=== PATIENT | male | born 1985 | race Caucasian/White ===

== ENCOUNTER 2018-03-02 06:50 | Emergency (ER) | payer BC, OTHER ==
[~2018-03-02] VITALS: Ht 175.3 cm; Wt 108.9 kg
[2018-03-02 06:57] VITALS: BP 143/77
--- NOTE | 2018-03-02 07:15 | NUR ---
32/ M BIB SELF, C/O OF PRODUCTIVE COUGH, BODY ACHES, AND CONGESTION X4 DAYS. PATIENT STATES HE HAS NAUSEA, DIARRHEA, POOR APPETITE, DENIES VOMITING OR ABDOMINAL DISCOMFORT OR PAIN. DENIES DYSURIA, REPORTS DARK URINE, STATES "I FEEL DEHYDRATED." BREATHING IS UNLABORED AND EQUAL BILATERAL, LUNG SOUNDS SLIGHTLY WHEEZING, PATIENT DENIES CP, OR SOB. CONSTANT BODY ACHE PAIN AND HEADACHES IS 6/10. PATIENT IS AOX4, STEADY GAIT, DENIES WEAKNESS OR DIZZINESS. PATIENT GOWNED, SAFETY PRECAUTIONS IN PLACE.
[2018-03-02] MEDS ORDERED: KETOROLAC 30 MG/ML VIAL IM ONE (07:20)
--- NOTE | 2018-03-02 07:50 | NUR ---
X RAY AT BEDSIDE.
--- NOTE | 2018-03-02 07:54 | NUR ---
INFLUENZA SWAB COLLECTED, LAB AT BEDSIDE TO PARTS COUNTER CLERK.
[2018-03-02] MEDS ORDERED: NACL 0.9% 1,000 ML IV ONE (08:15)
--- NOTE | 2018-03-02 08:29 | NUR ---
FLU B POSITIVE RESULT RECEIVED BY THE LAB AT THIS TIME. AWARE.
[2018-03-02] MEDS ORDERED: OSELTAMIVIR PHOSPHATE 75 MG CAP PO ONE (08:50)
[2018-03-02] MEDS ORDERED: LEVOFLOXACIN 750 MG TAB PO ONE (08:50)
[2018-03-02 10:28] VITALS: BP 122/71
--- NOTE | 2018-03-02 10:28 | NUR ---
Patient discharged with v/s stable. Written and verbal after care instructions given and explained. Patient alert, oriented and verbalized understanding of instructions. Ambulatory with steady gait. All questions addressed prior to discharge. ID band removed. Patient advised to follow up with PMD. Rx of TAMIFLU, IBUPROFEN, ZOFRAN, LEVAQUIN, AND CODEINE PHOSPHATE/ PROMETHAZINE HYDROCHLORIDE given. Patient educated on indication of medication including possible reaction and side effects. Opportunity to ask questions provided and answered.
== END 2018-03-02 10:28 | disposition home or self-care (01) ==
LOC: MED 06:50
DX: J11.1 Influenza due to unidentified influenza virus with other respiratory manifestations (principal)
CPT/HCPCS: 36415; 71045; 81002; 87804; 96360; 96372; 99284; J1885; J7030

== ENCOUNTER 2019-04-25 18:48 | Emergency (ER) | payer BC ==
[~2019-04-25] VITALS: Ht 177.8 cm; Wt 115.7 kg
[2019-04-25 18:51] VITALS: BP 155/94
--- NOTE | 2019-04-25 19:02 | NUR ---
Patient ambulated to bed 6. RN evaluating patient at bedside.
--- NOTE | 2019-04-25 19:02 | NUR ---
ambulated to bed 6
--- NOTE | 2019-04-25 19:04 | NUR ---
Dr. Houston is evaluating the patient at bedside.
--- NOTE | 2019-04-25 19:05 | NUR ---
RECEIVED REPORT FROM LIONEL DIAZ.
--- NOTE | 2019-04-25 19:15 | NUR ---
PT COMES IN COMPLAINING OF FLU SYMPTOMS THAT BEGAN THIS MORNING; INCLUDING A DUAL EARACHE, HEADACHE, SORE THROAT, DIARRHEA, COUGH, AND GREEN PHLEGM. DENIES TAKING ANY MEDICATIONS FOR THE SYMPTOMS, OR MEDICATIONS IN GENERAL. DENIES PAST MEDICAL HISTORY, ASIDE FROM A PREVIOUS BOUT OF FLU THAT RESULTED IN PNEUMONIA. PT RESTING COMFORTABLY LYING DOWN ON GURNEY. HAS WET COUGH. LS DIMINISHED WITH SLIGHT CRACKLES. VSS.
[2019-04-25] MEDS ORDERED: AMPICILLIN/SULBACTAM 3 GM in NACL 0.9% 100 ML IV ONE (19:30)
[2019-04-25] MEDS ORDERED: NACL 0.9% 1,000 ML IV ONE (19:30)
[2019-04-25] MEDS ORDERED: AMPICILLIN/SULBACTAM 3 GM VIAL ONE (19:52)
[2019-04-25 21:45] VITALS: BP 146/93
--- NOTE | 2019-04-25 21:45 | NUR ---
Patient discharged with v/s stable. Written and verbal after care instructions given and explained. Patient alert, oriented and verbalized understanding of instructions. Ambulatory with steady gait. All questions addressed prior to discharge. ID band removed. Patient advised to follow up with PMD. Rx of AUGMENTEN given. Patient educated on indication of medication including possible reaction and side effects. Opportunity to ask questions provided and answered.
--- NOTE | 2019-04-25 21:48 | NUR ---
DISCHARGED BY DR MARQUEZ.
--- NOTE | 2019-04-26 12:24 | NUR ---
Late entry. Confirmed with RN that 0.9 NS IV completed at 2049. Unasyn began at 1999 and ended at 2099.
== END 2019-04-25 21:45 | disposition home or self-care (01) ==
LOC: MED 18:48
DX: J20.9 Acute bronchitis, unspecified (principal); J45.909 Unspecified asthma, uncomplicated; I10 Essential (primary) hypertension
CPT/HCPCS: 36415; 87040; 96365; 99284; J0295; J7030; 96361

== ENCOUNTER 2021-07-27 08:50 | Emergency (ER) | payer BC ==
[~2021-07-27] VITALS: Ht 177.8 cm; Wt 106.6 kg
[2021-07-27 08:57] VITALS: BP 130/74
--- NOTE | 2021-07-27 09:04 | NUR ---
PT AMB TO BED 4.
--- NOTE | 2021-07-27 09:07 | NUR ---
36 Y/O MALE BIB SELF C/O COUGH, SORE THROAT X 3 DAYS. PT STATES HE HAD THE CHILLS ON ONE OCCURENCE. PT DENIES ANY SICK HOUSEHOLD MEMBERS. PT DENIES N,V,D. LUNG SOUNDS CTA. PT ALERT AND ORIENTED X4. PMH: ASTHMA MEDS: DENIES
--- NOTE | 2021-07-27 09:30 | NUR ---
PATIENT LEFT WITHOUT BEING SEEN BY DR. LOYD. NO FURTHER CARE PROVIDED FOR PATIENT. PT STATES HE WILL RETURN LATER TONIGHT AFTER HIS SHIFT TODAY.
== END 2021-07-27 09:30 | disposition left against medical advice (07) ==
LOC: MED 08:50
DX: J02.9 Acute pharyngitis, unspecified (principal); R05.9 Cough, unspecified; Z53.21 Procedure and treatment not carried out due to patient leaving prior to being seen by health care provider